=== PATIENT | male | born 1990 | race Two or more races ===

== ENCOUNTER 2019-09-27 18:31 | Emergency (ER) | payer MEDICAID ==
[~2019-09-27] VITALS: Ht 180.3 cm; Wt 86.0 kg
[2019-09-27] MEDS ORDERED: VISCOUS LIDOCAINE 2% 15 ML UDC PO ONE (19:15)
[2019-09-27] MEDS ORDERED: ASPIRIN 81MG TABLET PO ONE (19:15)
[2019-09-27] MEDS ORDERED: MAGNESIUM/ALUMINUM HYDROXIDE/SIMETHICONE 30ML UDC PO ONE (19:15)
[2019-09-27] MEDS ORDERED: KETOROLAC 30MG/ML VIAL IV ONE (19:30)
[2019-09-27 20:51] LABS: BASOPHILS % 0.6 % (0.0-2.0); EOSINOPHILS % 1.3 % (0.0-5.0); HEMATOCRIT. 43.3 % (42.0-52.0); HEMOGLOBIN. 14.7 g/dL (14.0-18.0); LYMPHOCYTES % 20.2 % (20.0-50.0); MEAN CORPUSCULAR HEMOGLOBIN 30.1 pg (28.0-32.0); MEAN CORPUSCULAR VOLUME 88.5 fL (80.0-94.0); MEAN PLATELET VOLUME 9.8 fl (7.4-10.4); MONOCYTES % 8.1 % (2.0-8.0); NEUTROPHILS % 69.8 % (40.0-76.0); PLATELET 202 x1000/uL (130-400); RED BLOOD CELL COUNT 4.89 mill/uL (4.7-6.1); RED CELL DISTRIBUTION WIDTH 13.4 % (11.6-14.6)
[2019-09-27 20:52] LABS: CHLORIDE 106 mEq/L (98-107)
[2019-09-27 22:10] VITALS: BP 134/89
== END 2019-09-27 22:10 | disposition home or self-care (01) ==
LOC: ER 18:31
DX: R07.89 Other chest pain (principal); R03.0 Elevated blood-pressure reading, without diagnosis of hypertension
CPT/HCPCS: 36415; 71045; 80053; 83690; 83880; 84484; 85025; 93005; 96374; 99285; J1885; Z7610